=== PATIENT | male | born 1975 | race Caucasian/White ===

== ENCOUNTER 2024-07-02 08:01 | Emergency (ER) | payer SELFPAY ==
[2024-07-02 08:16] VITALS: BP 169/95
--- NOTE | 2024-07-02 08:39 | ED.MUSCINJ ---
HPI-Injury
General
Chief Complaint: Musculo-Skeletal Complaint
Source: patient
Exam Limitations: none
Time Seen by Provider: 07/02/24 08:21
History of Present Illness-Injury
Initial Injury comments:
49-year-old male presents with pain to the right thumb he sustained yesterday. He states he started in the car door. He notes throbbing and bruising underneath the nail. He is right-hand dominant. No other
Past History
Past History
ED Past Medical History: None
ED Past Surgical History: None
Social History
Tobacco: Smoker
Alcohol: Occasional
Family History
Family History: Negative Diabetes, Hypertension or CAD
Phy Exam
Physical Exam
Physical Exam:
General: Well-appearing but uncomfortable male no acute respiratory distress
Musculoskeletal exam: Right thumb tender distally with greater than 50% subungual hematoma. No deformity able to flex and extend at the IP joint the skin is intact
Good sensation to the right thumb
Injury Course
Orders/Labs/Results
Orders:
Orders
07/02/24 08:19
Finger(s)/Thumb 2 View Rt [CR Finger(s)/thumb Min 2 Vw Rt] Urgent
Comment:
Reason For Exam: injury
Indicate Which Finger:: Thumb
MDM/Problems Addressed
Differential Diagnosis Includes:
Subungual hematoma. Question of underlying fracture. I reviewed the x-rays of the right thumb which are negative for fracture.
The hematoma was drained using a thermal cautery device. Patient did receive relief from this procedure.
*Critical Care Note
Total Time (30-74mins, 75-104mins- exclusive of procedures): Not Applicable
ED Attending Note
-
Portions of this chart may have been created with voice recognition software.� Occasional wrong word or��sound alike� substitutions may have occurred due to the inherent limitations of voice recognition software.
Discharge Plan
Departure
Patient Disposition: Home (Routine Discharge)
Date of Disposition: 07/02/24
Time of Disposition: 08:44
Patient with high blood pressure during this ER visit?: No
Discharge Problem:
Subungual hematoma
Instructions: Bruising Under the Nail
Prescriptions:
No Action
citalopram 20 MG tablet
20 mg PO DAILY
Patient Comments:
pt reports he just started & only has had 2 doses
Activity Restrictions/Additional Instructions:
Keep elevated. Use ibuprofen or Tylenol for pain. You may ice for swelling.
Interventions
Interventions:
*Risk Screen - Suicide Last Done: 07/02/24 08:16
*Neglect/Abuse Screening Last Done: 07/02/24 08:16
Discharge Date and Time
Print Language: GREENLANDIC
[2024-07-02] MEDS: MOTRIN 600 MG PO (09:04)
== END 2024-07-02 09:32 | disposition home or self-care (01) ==
LOC: EMR 08:01
PROVIDERS: EMERGENCY PHYSICIAN Emergency Medicine
DX: S60.011A Contusion of right thumb without damage to nail, initial encounter (principal); W23.0XXA Caught, crushed, jammed, or pinched between moving objects, initial encounter; F17.200 Nicotine dependence, unspecified, uncomplicated
CPT/HCPCS: 99283; 10140; 73140

== ENCOUNTER 2024-12-18 08:54 | Emergency (ER) | payer OTHER, SELFPAY ==
[2024-12-18 08:56] VITALS: BP 120/77
[2024-12-18 09:55] VITALS: BP 114/75; BMI 22.5
[2024-12-18] MEDS: PEPCID 20 MG IV (09:58)
[2024-12-18] MEDS: DECADRON 10 MG IV (09:58)
[2024-12-18] MEDS: BENADRYL 25 MG IV (09:58)
[2024-12-18 10:01] VITALS: BP 124/86
[2024-12-18 10:51] VITALS: BP 124/86
[2024-12-18 11:00] VITALS: BP 118/84
--- NOTE | 2024-12-18 11:53 | ED.GENMED ---
History of Present Illness
General
Chief Complaint: Insect Sting
Source: patient
Time Seen by Provider: 12/18/24 09:41
History of Present Illness
History of Present Illness:
Note:
CHIEF COMPLAINT(S)
Allergic reaction following a bee sting.
HISTORY OF PRESENT ILLNESS
The patient is a 49-year-old male presenting with an allergic reaction following a recent bee sting. 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
He lost consciousness during that episode but did not suffer a myocardial infarction. At that time, he did not receive an EpiPen prescription for home use.
Currently, the patient observed redness on the skin, which initially appeared localized but progressed to systemic hives. He denied any feelings of breathlessness, lip or tongue swelling, or lightheadedness, which he experienced in the past.
Physical examination revealed hives on the left arm, axilla, chest, low back, and right arm. Despite the hives, the patients lips and tongue are free from swelling, and there is no sign of respiratory distress.
PAST MEDICAL AND SURIGICAL HISTORY
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
SOCIAL DETERMINANTS AFFECTING HEALTH
The patient is a smoker.
REVIEW OF SYSTEMS
- Integumentary: Presence of hives on arms, axilla, chest, and low back.
- Respiratory: No labored breathing.
- Head and Neck: No lip or tongue swelling noted.
PHYSICAL EXAM
General: Alert, no acute distress.
Skin: Hives present on the left arm extending into the axillary region, down the left flank, across the chest, and the low back.
Head: Normocephalic, atraumatic.
Neck: Supple, trachea midline.
Eyes, Ears, Nose, Mouth, and Throat: Oral mucosa moist, no lip or tongue swelling.
Cardiovascular: Normal peripheral perfusion, pulse regular, no edema.
Respiratory: Respirations are non-labored with clear lung sounds, no wheezing.
Musculoskeletal: Normal ROM, normal strength.
Neurological: Alert and oriented to person, place, time, and situation, No focal neurological deficit observed.
Psychiatric: Cooperative, appropriate mood and affect.
PROBLEM LIST
Acute:
- Systemic allergic reaction with hives following bee sting.
PLAN
- Administer a single dose of steroids (dexamethasone) to prevent further progression of the allergic reaction.
- Prescribe EpiPen for potential future episodes, with instructions on its use if symptoms such as lip swelling or difficulty breathing occur.
- Administer oral antihistamine medication (diphenhydramine) for symptomatic relief.
- Instruct the patient to seek emergency care if symptoms escalate.
DIFFERENTIAL DIAGNOSIS
The Differential Diagnosis includes, in no particular order and is not limited to:
1. Anaphylactic reaction.
2. Allergic urticaria.
3. Mast cell activation syndrome.
4. Angioedema.
5. Contact dermatitis.
6. Drug-induced urticaria.
7. Serum sickness.
8. Viral exanthem.
9. Idiopathic urticaria.
10. Food-related allergic reaction.
CARE-UPDATE
12/18/24 - 11:53
Patients condition has improved significantly with decreased redness and improved appearance on chest and arms. Plan to discharge patient with instructions:
1. Prescribe an EpiPen for emergency use.
2. Prescribe a short course of steroids with instructions to fill the prescription only if symptoms (redness, hives) persist or return by tomorrow.
3. Advise continued use of Benadryl as needed or switch to a non-sedating antihistamine like Claritin if symptoms reappear or worsen.
4. Reassure patient and confirm understanding of the treatment plan.
Disposition:
SUMMARY OF ENCOUNTER
The patient, a 49-year-old male, presented to the emergency department with a systemic allergic reaction following a bee sting. He previously experienced anaphylactic shock from a bee sting, resulting in loss of consciousness, but did not have a
myocardial infarction. This current episode was marked by redness progressing to systemic hives but no respiratory distress, lip, or tongue swelling. Upon reassessment, the patients condition improved significantly as the hives resolved, and there
was no airway involvement.
DISPOSITION
Discharge.
ASSESSMENT
Systemic allergic reaction secondary to bee sting, now improved.
EMERGENCY TREATMENTS ADMINISTERED
A single dose of dexamethasone for prevention of further progression of the allergic reaction.
REASSESSMENT
The patient�s condition improved significantly upon reassessment, with resolution of hives and no airway involvement noted.
PLAN
Administer a single dose of dexamethasone. Prescribe an EpiPen for emergency use, instructing the patient to use it if they experience any symptoms of anaphylaxis. Discharge the patient with an EpiPen and instructions for emergency use if needed.
Provide reassurance and education regarding the use of prescribed medications.
PATIENT EDUCATION AND COUNSELING
The patient was educated on the importance of carrying an EpiPen for potential future anaphylactic reactions and instructed on its use if symptoms like lip swelling or difficulty breathing occur.
FOLLOW-UP INSTRUCTIONS
Instruct the patient to seek emergency care if symptoms escalate. Recommend follow-up with a primary care physician for further evaluation and management of allergies.
MEDICATION RECONCILIATION
1. Dexamethasone administered in the emergency department.
2. Prescribed an EpiPen for home use with emergency instructions.
MEDICAL DECISION MAKING
-Complexity of Data Reviewed: Chronic conditions affecting care including a history of anaphylactic reaction to bee sting.
Differential Diagnosis includes:
1. Anaphylactic reaction.
2. Allergic urticaria.
3. Mast cell activation syndrome.
4. Angioedema.
5. Contact dermatitis.
6. Drug-induced urticaria.
7. Serum sickness.
8. Viral exanthem.
9. Idiopathic urticaria.
10. Food-related allergic reaction.
-Data:
Category 1:
No labs or imaging were deemed necessary.
-Risk: Prescription medication was prescribed. Care was affected by the patients smoking status.
DIAGNOSIS
T78.2XXA - Anaphylaxis due to an unspecified food.
Past History
Past History
ED Past Medical History: None
ED Past Surgical History: None
Social History
Tobacco: Smoker
Alcohol: Occasional
Family History
Family History: Negative Diabetes, Hypertension or CAD
Phy Exam
Physical Exam
Physical Exam:
.
Course
Orders/Labs/Results
Orders:
Orders
12/18/24 09:51
Dexamethasone Sod Phosphate [Decadron] 10 mg IV NOW STA
Diphenhydramine [Benadryl] 25 mg IV NOW STA
Famotidine [Pepcid] 20 mg IV NOW STA
Vital Signs
Initial and Last Documented VS:
Initial Vital Signs
Temp Pulse Resp BP Pulse Ox
98.2 F 92 16 120/77 97
12/18/24 08:56 12/18/24 08:56 12/18/24 08:56 12/18/24 08:56 12/18/24 08:56
Last Documented Vital Signs
Temp Pulse Resp BP Pulse Ox
97.6 F 70 12 118/84 99
12/18/24 10:51 12/18/24 11:15 12/18/24 11:15 12/18/24 11:00 12/18/24 11:55
*Pulse Oximetry
SaO2: 99
Oxygen Mode of Delivery: Room air
Patient hypoxic: no
*Critical Care Note
Total Time (30-74mins, 75-104mins- exclusive of procedures): Not Applicable
ED Attending Note
-
Portions of this chart may have been created with voice recognition software.� Occasional wrong word or��sound alike� substitutions may have occurred due to the inherent limitations of voice recognition software.
Discharge Plan
Departure
Patient Disposition: Home (Routine Discharge)
Date of Disposition: 12/18/24
Time of Disposition: 11:54
Patient with high blood pressure during this ER visit?: No
Discharge Problem:
Allergic reaction, Bee sting
Instructions: Insect Bites and Stings (DC)
Prescriptions:
New
epinephrine [EpiPen 2-Jesse] 0.3 mg/0.3 mL auto-injector
0.3 mg IM ONCE PRN (Reason: anaphylaxis) Qty: 2 0RF
prednisone 50 mg tablet
50 mg PO DAILY Qty: 5 0RF
No Action
citalopram 20 MG tablet
20 mg PO DAILY
Patient Comments:
pt reports he just started & only has had 2 doses
Referrals:
UNKNOWN - PT DOES,NOT KNOW [Family Provider]
Activity Restrictions/Additional Instructions:
Please use Benadryl as needed. Please see your doctor for follow-up in the next 1 week for reassessment. Return immediately for any lip swelling, tongue swelling, difficulty breathing, rash or any other concerns.
Interventions
Interventions:
*Risk Screen - Suicide Last Done: 12/18/24 08:56
*General Assessment Last Done: 12/18/24 09:56
*Neglect/Abuse Screening Last Done: 12/18/24 08:56
*ED- Fall Risk Assessment Last Done: 12/18/24 09:56
*ED COVID-19 Vaccine History Last Done: 12/18/24 09:56
ED-Skin Assessment Last Done: 12/18/24 09:56
ED- Pulmonary Assessment Last Done: 12/18/24 09:56
Discharge Date and Time
Print Language: WELSH
== END 2024-12-18 12:27 | disposition home or self-care (01) ==
LOC: EMR 08:54
PROVIDERS: EMERGENCY PHYSICIAN Emergency Medicine
DX: T63.441A Toxic effect of venom of bees, accidental (unintentional), initial encounter (principal); F17.200 Nicotine dependence, unspecified, uncomplicated; Z91.030 Bee allergy status; Z87.892 Personal history of anaphylaxis
CPT/HCPCS: 99284; 96374; 96375 ×2